=== PATIENT | male | born 1955 | race American Indian/Alaskan Native ===

== ENCOUNTER 2023-03-20 18:27 | Emergency (ER) | payer OTHER ==
[2023-03-20] MEDS ORDERED: EPINEPHrine 1:10,000 1 MG/10 ML Syringe ONE ×7 (18:36→19:04)
[2023-03-20] MEDS ORDERED: Sodium Bicarbonate 8.4% 50 MEQ/50 ML Syringe ONE ×2 (18:47→18:51)
[2023-03-20] MEDS ORDERED: Sodium Chloride 0.9% 1,000 ML IV ONE (18:54)
== END 2023-03-20 21:15 | disposition expired ==
LOC: EDBD 18:27 → JD.ED 18:27
DX: I46.9 Cardiac arrest, cause unspecified (principal); E66.9 Obesity, unspecified
CPT/HCPCS: 31500; 92950; 96374; 99285; J0171; J7030; J3490